=== PATIENT | female | born 1975 | race Caucasian/White ===

== ENCOUNTER 2017-07-07 09:36 | Emergency (ER) | payer MEDICAID, OTHER ==
[2017-07-07] MEDS ORDERED: ONDANSETRON 4 MG/2 ML VIAL IVP ONE (10:07)
--- NOTE | 2017-07-07 10:10 | EDPHY ---
H & P Stated Complaint: abd pain/n/v/d Time Seen by Provider: 07/07/17 09:55 HPI/ROS: CHIEF COMPLAINT: Nausea vomiting diarrhea HISTORY OF PRESENT ILLNESS: 42-year-old female remote history of cholecystectomy complaining of 5 days of nausea, vomiting, diarrhea, left lower quadrant abdominal pain. Unable to tolerate oral intake. No melena or hematochezia. No hematemesis. No back or flank pain. No fever or chills. No URI symptoms. No urinary abnormality such as dysuria hematuria increased frequency. REVIEW OF SYSTEMS: A ten point review of systems was performed and is negative with the exception of the items mentioned in the HPI PAST MEDICAL & SURGICAL HISTORY: Cholecystectomy. Depression. SOCIAL HISTORY: Denies acute alcohol use PHYSICAL EXAM (Prior to examination, patient consented to physical exam, hands were washed and my usual and customary physical exam procedures followed) 1) GENERAL: Well-developed, well-nourished, alert and oriented. Appears uncomfortable. 2) HEAD: Normocephalic, atraumatic 3) HEENT: Pupils equal, round, reactive to light bilaterally. Sclera anicteric. Nasopharynx, oropharynx, clear, no lesions. Dry mucous membranes Ears bilaterally with normal tympanic membranes. 4) NECK: Full range of motion, no meningeal signs. 5) LUNGS: Clear auscultation bilaterally, no wheezes, no rhonchi, no retractions. 6) HEART: Regular rate and rhythm, no murmur, no heave, no gallop. 7) ABDOMEN: No guarding, no rebound, no focal tenderness, negative McBurney's, negative Estrella's, tender to palpation left lower quadrant negative peritoneal sign, 8) MUSCULOSKELETAL: Moving all extremities, no focal areas of tenderness, no obvious trauma. No peripheral edema or discoloration. 9) BACK: No CVA tenderness, no midline vertebral tenderness, no fluctuance, no step-off, no obvious trauma, no visual or palpable abnormality. 10) SKIN: No rash, no petechiae. 11) Psychiatric: Patient is oriented X 3, there is no agitation. DIFFERENTIAL DIAGNOSIS: My differential diagnosis includes, but is not limited to, acute appendicitis, acute cholecystitis, bowel obstruction, acute pancreatitis, ovarian torsion, ectopic , gastritis and urinary tract infection. The patient understands that this diagnosis is provisional and can never be 100% accurate. This is a partial list of diagnoses considered. These considerations are based on history, physical exam, past history and reassessment. - Personal History LMP (Females 10-55): 8-14 Days Ago Current Tetanus/Diphtheria Vaccine: Yes - Medical/Surgical History Hx Asthma: No Hx Chronic Respiratory Disease: No Hx Diabetes: No Hx Cardiac Disease: No Hx Renal Disease: No Hx Cirrhosis: No Hx Alcoholism: Yes Hx HIV/AIDS: No Hx Splenectomy or Spleen Trauma: No Other PMH: ETOH/DEPRESSION/choly - Social History Smoking Status: Never smoked Constitutional: Initial Vital Signs Temperature (C) 36.9 C 07/07/17 09:41 Heart Rate 71 07/07/17 09:41 Respiratory Rate 18 07/07/17 09:41 Blood Pressure 101/62 07/07/17 09:41 O2 Sat (%) 100 07/07/17 09:41 O2 Delivery Mode Room Air Allergies/Adverse Reactions: No Known Allergies Allergy (Unverified 07/07/17 09:40) Home Medications: Medication Instructions Recorded Buspar (RX) 07/31/15 IBUPROFEN 07/31/15 Zoloft 100mg (RX) 07/31/15 traZODONE 07/31/15 Ondansetron Odt [Zofran Odt] 4 mg PO Q4PRN PRN #10 tab 07/07/17 Medical Decision Making - Diagnostics Imaging Results: Imaging Impressions Abdomen CT 07/07/17 10:51 Impression: 1. Complex solid and cystic mass in the cul-de-sac region extending to the right of midline displacing the uterus toward the left. There does appear to be normal ovarian tissue along the right pelvic sidewall. The mass could potentially be related to the left ovary that is become displaced posteriorly secondary to the size. Consider correlation with pelvic ultrasound for further characterization. Rule out ovarian neoplasm versus complex hemorrhagic type ovarian cystic abnormality. 2. No CT evidence of appendicitis, abscess, diverticulitis, or bowel obstruction. 3. Small 11 mm enhancing nodule right lobe liver posterior segment near the dome could represent high flow hemangioma. Consider follow-up MRI of the abdomen in one year to confirm stability and benign features. Findings discussed with D Lorena Floyd PAC at 11:57 hour, 07/07/2017. Pelvic/Renal Ultrasound 07/07/17 11:59 Impression: 1. Dominant left ovarian cyst in the cul-de-sac region with subsequent displacement of the left ovary superiorly to the left of midline with the left ovary actually positioned adjacent to the right ovary. 2. Color-flow Doppler waveform of the left ovary is diminished when compared to the right ovary, however, there there was adequate color flow Doppler flow during live scanning. However, of note, on CT imaging there is left-sided color flow enhancement of the left ovarian tissue when compared to the right ovarian tissue. This discrepancy was discussed with Miki Barrientos PA-C. Additional pelvic imaging with color-flow Doppler ovarian imaging will be performed if the patient has persistent or increased symptoms. ED Course/Re-evaluation: 10:07 a.m.: Plan will be IV hydration, antiemetic, diagnostic studies. Patient is focally tender to palpation left lower quadrant. We discussed possibility of acute diverticulitis, we discussed ability of ovarian pathology. Given her concurrent GI symptoms I think that a pathology is less than likely at this time. Dip urinalysis is negative for leukocytes or nitrites. Care of patient under supervision of secondary supervising physician Dr Martell . 10:30 a.m.: Patient complaining of anxiety. Will be given IV Ativan 12:01 p.m.: Patient noted to have a large left pelvic mass seen on CT scan. Radiologist recommended pelvic ultrasonography which will be obtain. She is also noted to have a hepatic lesion. Have recommended palpation follow-up for this. 12:03 p.m.: I discussed this with the patient's partner as she is sleeping at this time and appears comfortable. 1:20 p.m.: Discussed with staff radiologist regarding the patient's ultrasound showing a possible partial torsion. The patient is complaining of waxing waning pain in the ER. OBGYN on-call will be paged 2:06 p.m.: The listed on-call OBGYN called back at this time, he informed me that he is not on-call and he recommended Dr. Jessica Bray be contacted. 2:11 p.m.: Phone consultation with Dr.Lisa Bray who will come to evaluate patient in the ER in approximately 30 min 4:12 p.m.: Dr. Bray has evaluated the patient in the ER, thinks the patient can be discharged with follow up in the office for repeat ultrasound. The patient's pain is controlled. Patient requests prescription for Zofran which she will be provided. - Data Points Laboratory Results: Laboratory Results 07/07/17 10:00 07/07/17 10:00 07/07/17 07/07/17 07/07/17 10:00 10:00 10:00 WBC 6.49 10^3/uL 10^3/uL (3.80-9.50) RBC 4.51 10^6/uL 10^6/uL (4.18-5.33) Hgb 13.4 g/dL g/dL (12.6-16.3) Hct 40.1 % % (38.0-47.0) MCV 88.9 fL fL (81.5-99.8) MCH 29.7 pg pg (27.9-34.1) MCHC 33.4 g/dL g/dL (32.4-36.7) RDW 12.5 % % (11.5-15.2) Plt Count 248 10^3/uL 10^3/uL (150-400) MPV 10.2 fL fL (8.7-11.7) Neut % (Auto) 61.6 % % (39.3-74.2) Lymph % (Auto) 30.5 % % (15.0-45.0) [place] % (Auto) 6.2 % % (4.5-13.0) Eos % (Auto) 0.9 % % (0.6-7.6) Baso % (Auto) 0.6 % % (0.3-1.7) Nucleat RBC Rel Count 0.0 % % (0.0-0.2) Absolute Neuts (auto) 4.00 10^3/uL 10^3/uL (1.70-6.50) Absolute Lymphs (auto) 1.98 10^3/uL 10^3/uL (1.00-3.00) Absolute Monos (auto) 0.40 10^3/uL 10^3/uL (0.30-0.80) Absolute Eos (auto) 0.06 10^3/uL 10^3/uL (0.03-0.40) Absolute Basos (auto) 0.04 10^3/uL 10^3/uL (0.02-0.10) Absolute Nucleated RBC 0.00 10^3/uL 10^3/uL (0-0.01) Immature Gran % 0.2 % % (0.0-1.1) Immature Gran # 0.01 10^3/uL 10^3/uL (0.00-0.10) Sodium 142 mEq/L mEq/L (135-145) Potassium 3.2 mEq/L L mEq/L (3.5-5.2) Chloride 103 mEq/L mEq/L (97-110) Carbon Dioxide 26 mEq/l mEq/l (22-31) Anion Gap 13 mEq/L mEq/L (8-16) BUN 7 mg/dL mg/dL (7-23) Creatinine 0.6 mg/dL mg/dL (0.6-1.0) Estimated GFR > 60 Glucose 100 mg/dL mg/dL (70-100) Calcium 8.7 mg/dL mg/dL (8.5-10.4) Total Bilirubin 0.6 mg/dL mg/dL (0.1-1.4) Conjugated Bilirubin 0.5 mg/dL mg/dL (0.0-0.5) Unconjugated Bilirubin 0.1 mg/dL mg/dL (0.0-1.1) AST 17 IU/L IU/L (14-46) ALT 34 IU/L IU/L (9-52) Alkaline Phosphatase 29 IU/L L IU/L (38-126) Total Protein 6.5 g/dL g/dL (6.3-8.2) Albumin 4.0 g/dL g/dL (3.5-5.0) Lipase 128 IU/L IU/L (23-300) Beta HCG, Qual NEGATIVE Medications Given: Discontinued Medications Lorazepam (Ativan Injection) 1 mg IVP EDNOW ONE Stop: 07/07/17 10:31 Last Admin: 07/07/17 10:34 Dose: 1 mg Ondansetron HCl (Zofran) 4 mg IVP EDNOW ONE Stop: 07/07/17 10:08 Last Admin: 07/07/17 10:11 Dose: 4 mg Departure - Departure Disposition: Home, Routine, Self-Care Clinical Impression: Nausea & vomiting Qualifiers: Vomiting type: unspecified Vomiting Intractability: non-intractable Qualified Code(s): R11.2 - Nausea with vomiting, unspecified Ovarian cyst Qualifiers: Laterality: left Qualified Code(s): N83.202 - Unspecified ovarian cyst, left side Condition: Good Instructions: Ovarian Cyst (ED), Acute Nausea and Vomiting (ED) Additional Instructions: Seek immediate medical attention if you develop new or worsening symptoms, if you develop fevers, chills, inability to tolerate oral intake or any other symptoms that concerns you. Referrals: Jessica Bray MD [Medical Doctor] - 5-7 days, call for appt. Prescriptions: Ondansetron Odt [Zofran Odt] 4 mg PO Q4PRN PRN #10 tab PRN Reason: Nausea
[2017-07-07 10:17] LABS: PLATELET COUNT 248 10^3/uL (150-400)
[2017-07-07] MEDS ORDERED: LORazepam 2 MG/ML INJ IVP ONE (10:30)
[2017-07-07] MEDS ORDERED: IOPAMIDOL (ISOVUE-300) 100 ML BTL ONE (10:56)
[2017-07-07] MEDS ORDERED: KETOROLAC 15 MG/1 ML SDV IVP ONE (16:01)
[2017-07-07] MEDS ORDERED: NS 1,000 ML IV ONE (16:12)
[2017-07-07] MEDS ORDERED: POTASSIUM CL 20 MEQ PKT PO ONE (16:15)
[2017-07-07 17:41] VITALS: BP 102/88
--- NOTE | 2017-07-08 11:40 | GCON ---
[f rep st] CONSULTATION GYNECOLOGIC CONSULTATION DATE OF CONSULTATION: 07/07/2017 HISTORY AT THE TIME OF CONSULTATION: The patient is a 42-year-old para 1 white female, who presented to the emergency room for nausea and vomiting and diarrhea x5 days with left lower quadrant pain. S jeane Tuesday, the , the patient has reported significant nausea and vomiting, and the patient has been able to tolerate minimal fluid intake and reports keeping down soup last night. The patient did have diarrhea also extensively on the and and has not had any bowel movements since that t deborah. The patient has had mild building pain in the left lower quadrant since that time as well. The patient reports monthly menstrual cycles and feels she is coming up on midcycle this weekend. The p atient does recall tenderness in the lower quadrant at mid cycle similar to this. The patient report s the discomfort does wax and wane and at times gets stronger. She has not been able to tolerate any ibuprofen or Tylenol. The patient also has not been able to tolerate her psych med now for 4 days. The patient has a history significant for cholecystectomy. The patient is sexually active and urine test was negative. During evaluation in the emergency room, the patient has received flui ds and Zofran for nausea, as well as 1 dose of Ativan. The patient had a CT scan, as well as a pelvi c ultrasound, that reveals a left ovarian cyst approximately 6 cm with good flow to the ovaries noted . REVIEW OF SYSTEMS: A 10-point review of systems performed with noted pertinent positives and negativ es above. The patient reports good urinary function but does feel more pressure in her pelvis. Charels es any dysuria or incontinence. Bowel function as noted above, and the patient has not had a bowel m ovement since the . PAST MEDICAL HISTORY: Patient has depression and anxiety, for which she is on multiple medications a nd has not had doses in 4 days. History of migraines. Denies any history of cardiac or respiratory problems. Denies history of gynecologic problems or sexually transmitted infections. PAST SURGICAL HISTORY: Cholecystectomy. PAST OBSTETRIC HISTORY: A vaginal delivery of a term infant 21 years ago. CURRENT MEDICATIONS: Zoloft, buspirone, trazodone, Vistaril, occasional ibuprofen. SOCIAL HISTORY: The patient has a supportive partner with her today. Is a nonsmoker. Minimal alcoh ol use. ULTRASOUND FINDINGS: The uterus is 5 x 6 cm, anteverted and retroflexed with a 7 mm endometrial thic kness. The uterus is tipped to the left. There is a 6.4 x 6.8 cm cystic mass in the cul-de-sac more to the right, pushing both ovaries close together. The right ovary appears normal. The left ovary was approximately 5 x 3 x 4 cm. There was good flow to both ovaries. The color-flow to the left ova ry appears a little diminished when compared to the right ovary. However, there is adequate Doppler to both. The structure is a simple cystic structure. LIMITED PHYSICAL EXAM: GENERAL: The patient is a well-developed, well-nourished white female in mil d physical discomfort. VITAL SIGNS: The patient is afebrile with a temp of 36.9, blood pressure ran ges have been 90 to 100 over 50s to 60s. Heart rates 70s to 80s. ABDOMEN: Soft and mild tenderness in the lower quadrants. There is no rebound and no distention. PELVIC: Deferred. EXTREMITIES: N ontender. No edema. LABORATORY EVALUATION: Normal white count at 6.5 with hemoglobin and hematocrit normal. Chem panel reveals sodium of 142 and potassium at 3.2, otherwise normal. Urine test was negative. ASSESSMENT: Gastrointestinal issue with nausea, vomiting, and diarrhea for the last [address] cholecystectomy. The patient feels improvement after Zofran. Diarrhea has subsided. I feel it i s imperative the patient resume her psychiatric medications and hope that when she uses the Zofran, s he will be able to keep those down, but feel this is likely resolving situation. The patient will re ceive more intravenous fluids before discharge with extra potassium. Left lower quadrant pain is con sistent with the finding on ultrasound of a simple cystic structure in the cul-de-sac. The patient i s near midcycle of her menstrual cycle and likely has an ovarian cyst that might totally resolve. Th e patient is advised to continue anti-inflammatories and is given Toradol here in the emergency room before discharge. The patient is strongly advised to be diligent with bowel support to ensure she do es not get constipated. That would worsen the pain. The best reassurance for the patient that her o varies were healthy would be to have an ultrasound after the next menstrual cycle. She is encouraged to follow up either with [facility] [place] or with Dr. Vora who she reports she has seen with in the last couple years. She performed an ultrasound and thought she saw small cyst on the left ova ry. The patient is counseled that possibly low-dose control pills could be used to help reduce the likelihood of cysts, and she reports in the past once she did use a pill but hates to interfere with potential psychiatric symptoms. If the cyst is persistent on ultrasound, then the patient might require surgical removal. The patient understands the issues and is given [facility] er to follow up as needed. /[id number]/MODL
== END 2017-07-07 17:41 | disposition home or self-care (01) ==
LOC: SUPCPDRO 09:36
DX: R11.2 Nausea with vomiting, unspecified (principal); N83.202 Unspecified ovarian cyst, left side; Z90.49 Acquired absence of other specified parts of digestive tract
CPT/HCPCS: 96374; J1885; J2060; J2405; Q9967